=== PATIENT | male | born 1980 | race Caucasian/White ===

== ENCOUNTER 2016-10-06 10:12 | Emergency (ER) | payer OTHER ==
[~2016-10-06] VITALS: Ht 172.7 cm; Wt 54.4 kg
--- NOTE | 2016-10-06 12:05 | ED GI/GU/ABDOMINAL COMPLAINT ---
History of Present Illness General Chief Complaint: General Adult Stated Complaint: PAINFUL HEMORRHOID Source: patient, family Exam Limitations: no limitations Vital Signs & Intake/Output Vital Signs & Intake/Output Vital Signs Date Time Temp Pulse Resp B/P Pulse O2 O2 Flow FiO2 Ox Delivery Rate 10/06 1221 98.6 76 18 112/84 98 Room Air 10/06 1055 98.1 84 18 107/63 99 Room Air ED Intake and Output 10/07 0000 10/06 1200 Intake Total Output Total Balance Patient 120 lb Weight Allergies Coded Allergies: acetaminophen (From VICODIN) (Intermediate, HIVES 10/06/16) hydrocodone (From VICODIN) (Intermediate, HIVES 10/06/16) Reconcile Medications Lidocaine (Anecream) 4 % CREAM..G. 1 BRAN RC Q6P PRN rectal Triage Note: C/O A PAINFUL HEMORRHOID X 2 DAYS. PAIN NOT RELIEVED WITH PREPARATION H. Triage Nurses Notes Reviewed? yes HPI: Fred Paz is a 36 yo m w/ PMH of hemorrhoids and constipation presenting to ED for rectal pain. Patient states he's had rectal pain over the past 3-4 days and it has now become unbearable. He has been using preparation H. Initially, it did provide him some relief, and now, it does not even touch the pain. Pt denies any active rectal bleeding. Pt states he had a previous bout of rectal pain a few years ago and he used preparation H which was completely effective. Patient endorses somewhat chronic constipation. Patient does endorse minimal water intake throughout the day. No abdominal pain, N/V/D, fever or chills. Past History Travel History Traveled to [place] past 21 day No Medical History Any Pertinent Medical History? see below for history Neurological: NONE EENT: NONE Cardiovascular: NONE Respiratory: NONE Gastrointestinal: NONE Hepatic: NONE Renal: NONE Musculoskeletal: NONE Psychiatric: NONE Endocrine: NONE Surgical History Surgical History: none Psychosocial History What is your primary language Bel[place]ian Tobacco Use: Never used ETOH Use: occasional use Family History Hx Contributory? No Review of Systems Review of Systems Constitutional: Reports: see HPI. EENTM: Reports: no symptoms. Respiratory: Reports: no symptoms. Cardiovascular: Reports: no symptoms. GI: Reports: no symptoms. Genitourinary: Reports: no symptoms. Musculoskeletal: Reports: no symptoms. Skin: Reports: no symptoms. Neurological/Psychological: Reports: no symptoms. Hematologic/Endocrine: Reports: no symptoms. Immunologic/Allergic: Reports: no symptoms. All Other Systems: Reviewed and Negative Physical Exam Physical Exam General Appearance: well developed/nourished, no apparent distress, alert, awake , anxious Head: atraumatic, normal appearance Eyes: Bilateral: normal appearance, PERRL, EOMI, normal inspection. Ears, Nose, Throat, Mouth: hearing grossly normal, moist mucous membrane Neck: normal inspection, supple, full range of motion Respiratory: normal breath sounds, chest non-tender, no respiratory distress Cardiovascular: regular rate/rhythm Gastrointestinal: normal bowel sounds, soft, non-tender, no organomegaly, PARTIALLY THROMBOSED 1.5 CM EXTERNAL HEMORRHOID W/O ANY ACTIVE BLEEDING Rectal: normal rectal tone, heme negative stool, hemmorrhoids Back: normal inspection, normal range of motion Extremities: normal range of motion Neurologic/Psych: no motor/sensory deficits, awake, alert, oriented x 3, normal gait, normal mood/affect Skin: intact, normal color, warm/dry Core Measures ACS in differential dx? No Severe Sepsis Present: No Septic Shock Present: No Progress Differential Diagnosis: diverticulitis, hemorrhoids, inflamm bowel dis, prostatitis Plan of Care: Patient is otherwise well-36 yo male w/ rectal pain. Physical exam revealed a tender, partially thrombosed (partially blood filled) external hemorroid that is 1.5-2cm in size. Hemorrhoid is located directly over the anal opening. No surrounding erythema. Rectal exam revealed brown stool, negative hemaoccult. Pt instructed to use stool softeners such as miralax and colace for maintaining soft stools. Patient instructed to not strain and wait till he has urge and reduce the amount of time on the toilet as that will prevent venous stasis. Pt also given Rx for Anecream 4%. Will f/u w/ GI for further evaluation and possible hemorrhoidectomy should this continue to re-occur. Initial ED EKG: none Departure Departure Time of Disposition: 1207 Disposition: HOME OR SELF CARE Condition: Stable Clinical Impression Primary Impression: External hemorrhoid Secondary Impressions: Rectal pain Referrals: PATIENT HAS NO PRIMARY CARE DR (PCP/Family) Additional Instructions: Please make sure he drink plenty of water on a daily basis, at least 64 ounces every day. It is also important that your stools, so I recommend that he use either MiraLAX or Colace on a daily basis. You have been given a prescription for a cream today. He should apply this to the area 15-20 minutes prior to having a bowel movement to decrease the pain. The pain becomes severe at other points he is up to 2-3 times a day. If you develop fever, abdominal pain, worsening pain, or any other concerning symptoms, please return to the emergency department for evaluation. He might also be helpful for you to follow up with a GI doctor. Departure Forms: Customer Survey General Discharge Information Prescriptions: Current Visit Scripts Lidocaine (Anecream) 1 BRAN RC Q6P PRN rectal 60 Days Ref 1
[2016-10-06] MEDS ORDERED: ANECREAM5 GM RC (12:16)
[2016-10-06 12:21] VITALS: BP 112/84
== END 2016-10-06 12:22 ==
LOC: ERH
DX: K64.4 Residual hemorrhoidal skin tags (principal); K62.89 Other specified diseases of anus and rectum